=== PATIENT | female | born 1940 | race Two or more races ===

== ENCOUNTER 2017-09-10 13:29 | Outpatient (CLI) | payer MEDICARE, OTHER ==
--- NOTE | 2017-09-10 16:00 | Diagnostic Imaging Report ---
Indication: Pain, trauma Technique: 3 views left hand Comparison: none Findings: No acute fractures. No dislocations. There are degenerative changes of the second through fifth proximal and distal interphalangeal joints. Impression: No acute bony trauma Degenerative changes, as described
== END 2017-09-10 15:29 | disposition home or self-care (01) ==
LOC: RAD 13:29
DX: M25.542 Pain in joints of left hand (principal)

== ENCOUNTER → 2017-09-23 | Outpatient (CLI) | payer MEDICARE, OTHER ==
--- NOTE | 2017-09-24 16:38 | Diagnostic Imaging Report ---
Indication: 77-year-old with left wrist and hand pain. History of trauma 4 weeks ago. Technique: MRI of the left hand/wrist was imaged in a 1.5 Jo-Ann magnet. Study is done in a generalized fashion. Pulse sequences obtained include multiplanar T1 fast spin-echo, STIR, Proton and T2 FSE w/ fat saturation, STIR. The field of view includes the lower or proximal aspects of the proximal phalanges of the digits 2-5 distally and the includes the distal radius and ulna, and most of the thumb. Comparison: Plain film 09/10/2017 Findings: Bone marrow signal is negative for trauma. There is no evidence of a fracture or bone marrow contusion. There is no malalignment. There is a 7 mm slightly lobulated fluid signal intensity structure consistent with a ganglion cyst noted just distal to and adjacent to triquetrum and pisiform bone. There is a small amount of fluid within the scapholunate space. There is a small amount of subcutaneous edema along the dorsal lateral aspect of the wrist in the region of the extensor carpi ulnaris tendon which appears slightly enlarged (for example image 19 of series 5). Suspect tendinopathy or partial tear. IMPRESSION: Abnormal appearance of the extensor carpi ulnaris tendon in the area of the distal ulna subsheath. Tendinopathy or partial tear may be present. Correlate clinically. 7 mm ganglion cyst distal to an adjacent to the fusiform/triquetrum. No evidence of an acute fracture or malalignment.
== END | disposition home or self-care (01) ==
LOC: RAD 12:14
DX: M25.532 Pain in left wrist (principal); M67.442 Ganglion, left hand